=== PATIENT | male | born 1960 | race Caucasian/White ===

== ENCOUNTER → 2017-05-10 | Outpatient (CLI) | payer OTHER ==
[2017-05-10 12:29] LABS: MEAN CORPUSCULAR HEMOGLOBIN 31.9 pg (27.0-33.0); MEAN CORPUSCULAR HGB CONC 34.3 g/dl (32.0-36.5); MEAN CORPUSCULAR VOLUME 92.9 fl (80.0-96.0); RED CELL DISTRIBUTION WIDTH 12.6 % (11.5-14.5); WHITE BLOOD COUNT 6.7 K/mm3 (4.0-10.0)
[2017-05-10 14:00] LABS: BASOPHILS 1 % (0-4); EOSINOPHILS 1 % (0-5)
[2017-05-10 15:53] LABS: ALBUMIN 4.1 GM/DL (3.2-5.2); ALBUMIN/GLOBULIN RATIO 1.17 (1.00-1.93); ALKALINE PHOSPHATASE 55 U/L (45-117); ALT/SGPT 36 U/L (12-78); ANION GAP 11 MEQ/L (8-16); AST/SGOT 19 U/L (15-37); BLOOD UREA NITROGEN 17 MG/DL (7-18); CALCIUM LEVEL 9.1 MG/DL (8.5-10.1); CARBON DIOXIDE LEVEL 25 MEQ/L (21-32); CHLORIDE LEVEL 104 MEQ/L (98-107); CREATININE FOR GFR 1.02 MG/DL (0.70-1.30); FREE T4 1.02 NG/DL (0.76-1.46); GLOMERULAR FILTRATION RATE > 60.0 (>56); GLUCOSE, FASTING 90 MG/DL (70-105); POTASSIUM SERUM 4.7 MEQ/L (3.5-5.1); SODIUM LEVEL 140 MEQ/L (136-145); TOTAL PROTEIN 7.6 GM/DL (6.4-8.2)
== END ==
LOC: M WUC 10:19
PROVIDERS: ATTEND Physician Assistant
DX: J02.9 Acute pharyngitis, unspecified (principal)

== ENCOUNTER → 2018-09-14 | Outpatient (REF) | payer OTHER ==
[2018-09-15 13:39] LABS: TESTOSTERONE 714 NG/DL (241-827)
== END ==
LOC: M LAB REF 11:49
DX: R68.82 Decreased libido (principal)

== ENCOUNTER 2019-08-12 23:32 | Emergency (ER) | payer OTHER ==
[~2019-08-12] VITALS: Ht 172.7 cm; Wt 104.5 kg
[2019-08-13] MEDS ORDERED: NS 500 ML IV ONE ×2 (00:30→01:15)
[2019-08-13 00:32] LABS: BASO # 0.1 10^3/uL (0.0-0.2); BASO % 0.5 % (0.0-1.0); EOS # 0.2 10^3/uL (0.0-0.5); HEMATOCRIT 42.6 % (42.0-52.0); HEMOGLOBIN 14.6 g/dl (13.5-17.5); LYMPH # 1.7 10^3/uL (1.5-5.0); MEAN CORPUSCULAR HEMOGLOBIN 32.1 pg (27.0-33.0); MEAN CORPUSCULAR HGB CONC 34.3 g/dl (32.0-36.5); MEAN CORPUSCULAR VOLUME 93.6 fl (80.0-96.0); MONO # 0.7 10^3/uL (0.0-0.8); MONO % 6.4 % (0.0-5.0); NEUTROPHILS % 74.6 % (36.0-66.0); PLATELET COUNT, AUTOMATED 240 10^3/uL (150-450); RED BLOOD COUNT 4.55 10^6/uL (4.30-6.10); WHITE BLOOD COUNT 10.7 10^3/uL (4.0-10.0)
[2019-08-13 00:43] LABS: ALBUMIN 3.7 GM/DL (3.2-5.2); ALT/SGPT 22 U/L (12-78); BILIRUBIN,DIRECT 0.2 MG/DL (0.0-0.2); BILIRUBIN,TOTAL 0.6 MG/DL (0.2-1.0); BLOOD UREA NITROGEN 14 MG/DL (7-18); CALCIUM LEVEL 8.7 MG/DL (8.5-10.1); CARBON DIOXIDE LEVEL 30 MEQ/L (21-32); CHLORIDE LEVEL 107 MEQ/L (98-107); CREATININE FOR GFR 1.05 MG/DL (0.70-1.30); GLOMERULAR FILTRATION RATE > 60.0 (>56); GLUCOSE, FASTING 98 MG/DL (70-100); LIPASE 121 U/L (73-393); POTASSIUM SERUM 4.1 MEQ/L (3.5-5.1); SODIUM LEVEL 141 MEQ/L (136-145); TOTAL PROTEIN 6.9 GM/DL (6.4-8.2)
[2019-08-13 00:44] LABS: INR 0.96; PARTIAL THROMBOPLASTIN TIME 26.6 SECONDS (25.0-38.4); PROTHROMBIN TIME 12.5 SECONDS (11.8-14.0)
[2019-08-13 00:47] LABS: APPEARANCE, URINE CLOUDY (CLEAR); BACTERIA, URINE AUTO NEGATIVE (NEGATIVE); BILIRUBIN, URINE AUTO NEGATIVE (NEGATIVE); BLOOD, URINE BLOOD NEGATIVE (NEGATIVE); COLOR, URINE YELLOW (YELLOW); GLUCOSE, URINE (UA) AUTO NEGATIVE (NEGATIVE); KETONE, URINE AUTO NEGATIVE (NEGATIVE); LEUKOCYTE ESTERASE, URINE AUTO NEGATIVE (NEGATIVE); MUCUS, URINE SMALL (NEGATIVE); NITRITE, URINE AUTO NEGATIVE (NEGATIVE); PROTEIN, URINE AUTO NEGATIVE (NEGATIVE); RBC, URINE AUTO 0 /HPF (0-3); SPECIFIC GRAVITY URINE AUTO 1.014 (1.002-1.035); SQUAMOUS EPITHELIAL CELL UR AU 0 /HPF (0-6); UROBILINOGEN, URINE AUTO 0.2 mg/dL (0.0-2.0); WBC, URINE AUTO 1 /HPF (0-3)
[2019-08-13] MEDS ORDERED: MORPHINE 10 MG/ML 1ML VIAL (J2270) As Ordered ONE (01:08)
[2019-08-13] MEDS ORDERED: MORPHINE 10 MG/ML 1ML VIAL (J2270) IV ONE (01:15)
[2019-08-13] MEDS ORDERED: ISOVUE-370 76% 100ML VIAL (Q9967) As Ordered ONE (01:17)
[2019-08-13] MEDS ORDERED: metroNIDAZOLE 750 MG in IV 1 EA IV ONE (02:30)
[2019-08-13] MEDS ORDERED: SUCRALFATE SUSP 1GM/10ML UD PO ONE (02:30)
[2019-08-13] MEDS ORDERED: CIPROFLOXACIN 400 MG in IV 1 EA IV ONE (02:30)
[2019-08-13] MEDS ORDERED: GI COCKTAIL 50ML BTL(HYOSCYAMINE/MAALOX/LIDOCAINE VISCOUS)(1:3:1) PO ONE (02:30)
[2019-08-13] MEDS ORDERED: FLAG500T PO (03:53)
[2019-08-13] MEDS ORDERED: CIPR-249 PO (03:53)
[2019-08-13] MEDS ORDERED: NORCO 5/325MG TABLET (BULK FOR ED) PO ONE (04:00)
[2019-08-13 05:04] VITALS: BP 145/78
--- NOTE | 2019-08-13 08:05 | REPVR ---
PROCEDURE INFORMATION: Exam: CT Abdomen and pelvis with contrast Exam date and time: 08/13/2019 1:25 AM Clinical history: 58 years old, male; Abdominal pain; Additional info: Llq pain TECHNIQUE: Imaging protocol: Computed tomography of the abdomen and pelvis with intravenous contrast. Radiation optimization: All CT scans at this facility use at least one of these dose optimization techniques: automated exposure control; mA and/or kV adjustment per patient size (includes targeted exams where dose is matched to clinical indication); or iterative reconstruction. Contrast material: ISO 370; Contrast volume: 100 ml; Contrast route: IV; COMPARISON: CT ABD PELVIS WITH CONTRAST 04/16/2015 6:30 PM FINDINGS: Liver: Partially exophytic right posterior-superior hepatic lesion measuring 3.2 cm is again demonstrated with some peripheral nodular enhancement, likely an exophytic hemangioma. Small, less than 5 mm, liver hypodensity. Highly likely to be benign and does not require follow-up imaging or biopsy per ACR. Additional small liver lesions. Gallbladder and bile ducts: Cholelithiasis. Pancreas: Small focal intercalated fat within the pancreas. Spleen: Normal. No splenomegaly. Adrenals: Normal. No mass. Kidneys and ureters: Normal. No hydronephrosis. Stomach and bowel: Mild/moderate acute sigmoid diverticulitis. Moderate diverticulosis coli. Appendix: No evidence of appendicitis. Intraperitoneal space: No perforation or drainable fluid collection. Vasculature: Minimal aortic atherosclerosis. Lymph nodes: Unremarkable. No enlarged lymph nodes. Bladder: Unremarkable as visualized. Reproductive: Unremarkable as visualized. Bones/joints: Moderate lower lumbar spinal stenosis. Soft tissues: Right inguinal fat protruding hernia. Small fat protruding umbilical hernia. IMPRESSION: 1. Mild/moderate acute sigmoid diverticulitis. No perforation or drainable fluid collection. 2. Cholelithiasis. 3. Small fat protruding umbilical hernia. 4. Partially exophytic right posterior-superior hepatic lesion measuring 3.2 cm is again demonstrated with some peripheral nodular enhancement, likely an exophytic hemangioma. Appears present on the comparison and unchanged in size. COMMENT: Consistent with the [employer]'s Incidental Findings Committee Report (J Am Yadiel Radiol 2010): Unless the patient's specific circumstances suggest otherwise, any liver lesion 0.5 cm or less, any cystic kidney lesion less than 1.0 cm, and/or any adrenal lesion 1.0 cm or less not otherwise characterized in this report as possessing suspicious or indeterminate imaging features is/are highly likely to be benign and do not require follow-up imaging or biopsy. Electronically signed by: Froilan Bowen On 08/13/2019 02:20:22 AM
== END 2019-08-13 05:06 | disposition home or self-care (01) ==
LOC: M ED 23:32
DX: K57.32 Diverticulitis of large intestine without perforation or abscess without bleeding (principal); K42.9 Umbilical hernia without obstruction or gangrene; K80.20 Calculus of gallbladder without cholecystitis without obstruction; I10 Essential (primary) hypertension
CPT/HCPCS: 74177; 80048; 80076; 81001; 83690; 85025; 85610; 85730; 87086; 96365; 96367; 96375; 99284; J0744; J2270; Q9967

== ENCOUNTER 2020-01-28 12:32 | Emergency (ER) | payer OTHER ==
[~2020-01-28] VITALS: Ht 175.3 cm; Wt 113.5 kg
[~2020-01-28 12:32] MED LIST: CIPR-249 PO; FLAG500T PO
[2020-01-28] MEDS ORDERED: ATOR1TAB21 (12:38)
[2020-01-28] MEDS ORDERED: BUPR150T3 (12:38)
[2020-01-28] MEDS ORDERED: LOSA50TA5 (12:38)
[2020-01-28] MEDS ORDERED: ASPIRIN 81 MG CHEW TABLET PO ONE (13:00)
[2020-01-28] MEDS ORDERED: GI COCKTAIL 50ML BTL(HYOSCYAMINE/MAALOX/LIDOCAINE VISCOUS)(1:3:1) PO ONE (13:00)
--- NOTE | 2020-01-28 13:10 | REP ---
Portable chest x-ray: Single view. History: Chest pain. Comparison chest x-ray is from July 10, 2014. Findings: Today's views exposed at a somewhat lesser level of inspiration. Heart size is borderline. The aorta is tortuous. Pulmonary vasculature is slightly cephalized. The pleural angles are sharp. No evidence of infiltrate, pulmonary edema, or pleural effusion. Impression: Cephalization. Borderline heart size. Lesser level of inspiration. Electronically Signed by Nestor Barry MD 01/28/2020 01:02 P
[2020-01-28 13:22] LABS: BASO % 0.4 % (0.0-1.0); EOS # 0.2 10^3/uL (0.0-0.5); EOS % 2.4 % (0.0-3.0); LYMPH # 1.3 10^3/uL (1.5-5.0); LYMPH % 14.3 % (24.0-44.0); MEAN CORPUSCULAR HEMOGLOBIN 31.3 pg (27.0-33.0); MEAN CORPUSCULAR HGB CONC 34.9 g/dl (32.0-36.5); MEAN CORPUSCULAR VOLUME 89.8 fl (80.0-96.0); MONO # 0.6 10^3/uL (0.0-0.8); MONO % 6.4 % (0.0-5.0); NEUTROPHILS # 6.9 10^3/uL (1.5-8.5); NEUTROPHILS % 76.3 % (36.0-66.0); PLATELET COUNT, AUTOMATED 205 10^3/uL (150-450); RED BLOOD COUNT 4.79 10^6/uL (4.30-6.10)
[2020-01-28 13:54] LABS: BLOOD UREA NITROGEN 17 MG/DL (7-18); CALCIUM LEVEL 8.6 MG/DL (8.5-10.1); CARBON DIOXIDE LEVEL 26 MEQ/L (21-32); CHLORIDE LEVEL 108 MEQ/L (98-107); CK-MB VALUE MASS 1.4 NG/ML (<3.6); CPK CREATINE PHOSPHOKINASE 196 U/L (39-308); CREATININE FOR GFR 1.01 MG/DL (0.70-1.30); GLOMERULAR FILTRATION RATE > 60.0 (>56); GLUCOSE, FASTING 122 MG/DL (70-100); MB/CK RELATIVE INDEX 0.71 (< OR =4); POTASSIUM SERUM 3.7 MEQ/L (3.5-5.1); SODIUM LEVEL 140 MEQ/L (136-145); TROPONIN I < 0.02 NG/ML (< 0.10)
[2020-01-28 14:46] LABS: INR 1.02; PROTHROMBIN TIME 13.1 SECONDS (11.8-14.0)
[2020-01-28] MEDS: NITROGLYCERIN 0.4 MG SUBL TABLET SL PRN ×2 (16:10→16:14)
[2020-01-28 16:14] VITALS: BP 123/55
[2020-01-28] MEDS ORDERED: NS 1,000 ML IV SCH (16:30)
[2020-01-28] MEDS ORDERED: KETOROLAC 30 MG/ML VIAL (J1885) IV ONE (16:30)
--- NOTE | 2020-01-28 17:27 | ECGEPIP ---
[facility] - ED Test Date: 2020-01-28 Pat Name: HUMBLE GRAY JR Department: Room: - Gender: Male Hospital Ward Clerk: ct : 1960 Requested By: Shira Nails Order Number: [id number] Reading MD: Shira Nails Measurements Intervals [place] Rate: 75 P: 50 [place]: 176 QRS: -12 QRSD: 83 T: 6 QT: 372 QTc: 416 Interpretive Statements SINUS RHYTHM MINIMAL VOLTAGE CRITERIA FOR LVH, CONSIDER NORMAL VARIANT NO PRIOR Electronically Signed on 01-28-2020 17:26:43 EDT by Shira Nails
--- NOTE | 2020-01-28 17:29 | ECGEPIP ---
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
[2020-01-28 18:33] LABS: CK-MB VALUE MASS 1.2 NG/ML (<3.6); CPK CREATINE PHOSPHOKINASE 154 U/L (39-308); MB/CK RELATIVE INDEX 0.78 (< OR =4); TROPONIN I < 0.02 NG/ML (< 0.10)
[2020-01-28] MEDS ORDERED: ASPI81TA85 PO (19:12)
[2020-01-28 19:17] VITALS: BP 119/66
== END 2020-01-28 19:27 | disposition home or self-care (01) ==
LOC: M ED 12:32
DX: R07.89 Other chest pain (principal); I10 Essential (primary) hypertension; E78.5 Hyperlipidemia, unspecified; Z79.899 Other long term (current) drug therapy; Z79.82 Long term (current) use of aspirin
CPT/HCPCS: 71045; 80048; 82550; 82553; 84484; 85025; 85610; 93005; 93041; 94760; 96361; 96374; 99285; J1885

== ENCOUNTER → 2020-09-19 | Outpatient (REF) | payer OTHER ==
[~2020-09-19] MED LIST changes: +ASPI81TA86 PO; +ATOR1TAB21; +BUPR150T3; +LOSA50TA5
== END ==
LOC: M LAB REF 12:16
PROVIDERS: ATTEND Internal Medicine
DX: R68.82 Decreased libido (principal); N52.9 Male erectile dysfunction, unspecified

== ENCOUNTER → 2020-09-23 | Outpatient (CLI) | payer OTHER ==
[~2020-09-23] MED LIST changes: +ASPI81TA26 PO; +ATOR1TAB21 PO; +BUPR150T3 PO; +LOSA50TA5 PO
--- NOTE | 2020-09-24 01:46 | REP ---
INDICATION: LEFT BACK AND BUTTOCK PAIN COMPARISON: None. TECHNIQUE: AP, lateral, bilateral oblique, and coned-down views of the lumbar spine. FINDINGS: Vertebral bodies are intact. No acute fracture/compression injury or subluxation. Lateral view suggests very minimal, 2 mm anterolisthesis at the L4-5 level with subtle associated disc space narrowing. Moderate focal degenerative changes at L5-S1 includes endplate sclerosis with moderate disc space narrowing and marginal osteophyte formation. Mild/moderate degenerative changes are also identified at L1-2 with endplate sclerosis minimal disc space narrowing and very subtle marginal spurring. IMPRESSION: Degenerative changes as suggested above. <Electronically signed by Jayme Dennis > 09/24/20 0142
--- NOTE | 2020-09-24 01:47 | REP ---
INDICATION: LEFT BACK AND BUTTOCK PAIN COMPARISON: None. TECHNIQUE: AP and frog-lateral views of the left hip FINDINGS: Generalized age-related changes include subtle increased sclerosis to the acetabulum with minimal joint space narrowing and marginal spurring. No further overt osteoarthritic or significant degenerative changes are appreciated. No evidence for acute or healed injury. Surrounding soft tissues are normal. IMPRESSION: Mild generalized age-related changes. <Electronically signed by Jayme Dennis > 09/24/20 0143
== END ==
LOC: M WUC 15:34
PROVIDERS: ATTEND Internal Medicine
DX: M54.5 Low back pain (principal); M51.36 Other intervertebral disc degeneration, lumbar region; M16.12 Unilateral primary osteoarthritis, left hip

== ENCOUNTER → 2020-09-26 | Outpatient (CLI) | payer OTHER ==
[~2020-09-26] MED LIST changes: +BUSP5TA PO; +LISI-542 PO
== END ==
LOC: M LABSMTC 10:36
PROVIDERS: ATTEND Anesthesiology
DX: Z01.812 Encounter for preprocedural laboratory examination (principal); Z20.828 Contact with and (suspected) exposure to other viral communicable diseases

== ENCOUNTER 2020-10-01 07:56 | Day surgery (SDC) | payer OTHER ==
[~2020-10-01] VITALS: Ht 172.7 cm; Wt 111.1 kg
[~2020-10-01 07:56] MED LIST changes: -BUSP5TA PO; +LIDOCAINE 2% 100MG/5ML SDV (FOR ANES.) As Ordered ONE; -LISI-542 PO; +NS 1,000 ML IV ONE; +propofoL 200 MG/20 ML VIAL As Ordered ONE
[2020-10-01] MEDS ORDERED: LISI-542 PO (08:34)
[2020-10-01] MEDS ORDERED: BUSP5TA PO (08:34)
--- NOTE | 2020-10-01 10:26 | ROOR ---
Patient Name: Sergo Ballesteros Procedure Date: 10/01/2020 10:05 AM Date of : 1960 Age: 60 Room: [facility] Gender: Male Note Status: Finalized Procedure: Total Colonoscopy to Cecum Indications: Colon cancer screening in patient at increased risk: Colorectal cancer in brother Providers: Jerry Winston MD Referring MD: TAMMY HAMMOND JR, MD Requesting Provider: Medicines: Monitored Anesthesia Care Complications: No immediate complications. Procedure: Pre-Anesthesia Assessment: - The heart rate, respiratory rate, oxygen saturations, blood pressure, adequacy of pulmonary ventilation, and response to care were monitored throughout the procedure. The Colonoscope was introduced through the anus and advanced to the cecum, identified by appendiceal orifice and ileocecal valve. The colonoscopy was performed without difficulty. The patient tolerated the procedure well. The quality of the bowel preparation was excellent. Findings: The perianal and digital rectal examinations were normal. Non-bleeding internal hemorrhoids were found during retroflexion. The hemorrhoids were small and Grade I (internal hemorrhoids that do not prolapse). Multiple small and large-mouthed diverticula were found in the recto-sigmoid colon, sigmoid colon and descending colon. The exam was otherwise without abnormality on direct and retroflexion views. Impression: - Non-bleeding internal hemorrhoids. - Diverticulosis in the recto-sigmoid colon, in the sigmoid colon and in the descending colon. - The examination was otherwise normal on direct and retroflexion views. - No specimens collected. - The exam was otherwise normal to the cecum. Recommendation: - Patient has a contact number available for emergencies. The signs and symptoms of potential delayed complications were discussed with the patient. Return to normal activities tomorrow. Written discharge instructions were provided to the patient. - High fiber diet. - Discharge patient to home. - Continue present medications. - Repeat colonoscopy in 5 years for screening purposes. - Return to referring physician. - The findings and recommendations were discussed with the patient. Procedure Code(s): --- Professional --- G0105, Colorectal cancer screening; colonoscopy on individual at high risk Diagnosis Code(s): --- Professional --- Z80.0, Family history of malignant neoplasm of digestive organs K64.0, First degree hemorrhoids K57.30, Diverticulosis of large intestine without perforation or abscess without bleeding CPT copyright 2019 [employer]. All rights reserved. The codes documented in this report are preliminary and upon butter production supervisor review may be revised to meet current compliance requirements. Jerry Winston MD Jerry Winston MD 10/01/2020 10:25:47 AM Electronically signed by Jerry Winston MD Number of Addenda: 0 Note Initiated On: 10/01/2020 10:05 AM Estimated Blood Loss: Estimated blood loss: none.
[2020-10-01 10:52] VITALS: BP 132/86
== END 2020-10-01 11:05 | disposition home or self-care (01) ==
LOC: M OPP 07:56
PROVIDERS: ATTEND Internal Medicine Gastroenterology
DX: Z12.11 Encounter for screening for malignant neoplasm of colon (principal); Z80.0 Family history of malignant neoplasm of digestive organs; K57.30 Diverticulosis of large intestine without perforation or abscess without bleeding; K64.0 First degree hemorrhoids; I10 Essential (primary) hypertension; Z79.82 Long term (current) use of aspirin; Z79.899 Other long term (current) drug therapy; Z91.012 Allergy to eggs; Z91.018 Allergy to other foods

== ENCOUNTER → 2021-09-23 | Outpatient (REF) | payer OTHER ==
[~2021-09-23] MED LIST changes: +BUPR150T12; +BUPR150T12 PO; -BUPR150T3; -BUPR150T3 PO; +BUSP5TA PO; -LIDOCAINE 2% 100MG/5ML SDV (FOR ANES.) As Ordered ONE; +LISI-898 PO; -NS 1,000 ML IV ONE; -propofoL 200 MG/20 ML VIAL As Ordered ONE
[2021-09-23 13:04] LABS: FOLATE 5.5 NG/ML
== END ==
LOC: M LAB REF 12:08
PROVIDERS: ATTEND Internal Medicine
DX: N52.9 Male erectile dysfunction, unspecified (principal); R41.3 Other amnesia

== ENCOUNTER → 2022-04-20 | Outpatient (CLI) | payer OTHER ==
[~2022-04-20] MED LIST changes: -LISI-898 PO; +LISI5TAB11 PO
== END ==
LOC: M WUC 14:43
PROVIDERS: ATTEND Physician Assistant Medical
DX: M54.50 Low back pain, unspecified (principal)

== ENCOUNTER → 2022-09-10 | Outpatient (REF) | payer OTHER | LOC: M LAB REF 16:02 | PROVIDERS: ATTEND Internal Medicine | DX: R59.0 Localized enlarged lymph nodes (principal) ==

== ENCOUNTER → 2022-09-23 | Outpatient (CLI) | payer OTHER | LOC: M RAD 11:05 | PROVIDERS: ATTEND Internal Medicine | DX: R10.33 Periumbilical pain (principal); R59.0 Localized enlarged lymph nodes ==

== ENCOUNTER → 2022-11-17 | Outpatient (CLI) | payer OTHER ==
[~2022-11-17] MED LIST changes: +ISOVUE-370 76% 100ML VIAL As Ordered ONE
== END ==
LOC: M RAD 15:58
PROVIDERS: ATTEND Surgery
DX: R59.9 Enlarged lymph nodes, unspecified (principal); R93.89 Abnormal findings on diagnostic imaging of other specified body structures

== ENCOUNTER → 2022-11-18 | Outpatient (REF) | payer OTHER ==
[~2022-11-18] MED LIST changes: -ISOVUE-370 76% 100ML VIAL As Ordered ONE
== END ==
LOC: M LAB REF 17:29
PROVIDERS: ATTEND Otolaryngology
DX: R22.1 Localized swelling, mass and lump, neck (principal)

== ENCOUNTER → 2023-01-24 | Outpatient (CLI) | payer OTHER ==
[~2023-01-24] MED LIST changes: +BUPR300T92 PO; +VITMTA PO
== END ==
LOC: M LABSMTC 08:13
PROVIDERS: ATTEND Anesthesiology
DX: Z01.812 Encounter for preprocedural laboratory examination (principal); Z20.822 Contact with and (suspected) exposure to COVID-19

== ENCOUNTER → 2023-01-27 | Day surgery (SDC) | payer OTHER ==
[~2023-01-27] VITALS: Ht 172.7 cm; Wt 110.1 kg
[~2023-01-27] MED LIST changes: +MIDAZOLAM INJ 2MG/2ML VIAL As Ordered ONE; +ONDANSETRON 4MG 2ML VIAL As Ordered ONE; +fentaNYL 100 MCG/2 ML INJECTION As Ordered ONE; +propofoL 200 MG/20 ML VIAL As Ordered ONE
[2023-01-27 08:24] VITALS: BP 140/93
== END | disposition home or self-care (01) ==
LOC: M SDC 07:40
PROVIDERS: ATTEND Otolaryngology
DX: R22.1 Localized swelling, mass and lump, neck (principal); Z53.09 Procedure and treatment not carried out because of other contraindication

== ENCOUNTER → 2023-01-27 | Outpatient (CLI) | payer OTHER ==
[~2023-01-27] MED LIST changes: -MIDAZOLAM INJ 2MG/2ML VIAL As Ordered ONE; -ONDANSETRON 4MG 2ML VIAL As Ordered ONE; -fentaNYL 100 MCG/2 ML INJECTION As Ordered ONE; -propofoL 200 MG/20 ML VIAL As Ordered ONE
[2023-01-27 18:57] LABS: RSV AMPLIFICATION NEGATIVE (NEGATIVE)
== END ==
LOC: M WUC 15:02
PROVIDERS: ATTEND Internal Medicine
DX: R05.9 Cough, unspecified (principal); R06.2 Wheezing; R06.02 Shortness of breath

== ENCOUNTER → 2023-02-21 | Outpatient (CLI) | payer OTHER ==
[~2023-02-21] MED LIST changes: +METHACHOLINE KIT INH ONE
== END ==
LOC: M CARPUL 09:39
PROVIDERS: ATTEND Internal Medicine
DX: R06.02 Shortness of breath (principal)
CPT/HCPCS: 94070; J7674

== ENCOUNTER → 2023-03-22 | Outpatient (CLI) | payer OTHER ==
[~2023-03-22] MED LIST changes: +ISOVUE-370 76% 100ML VIAL As Ordered ONE; -METHACHOLINE KIT INH ONE
== END ==
LOC: M RAD 15:57
PROVIDERS: ATTEND Otolaryngology
DX: R22.1 Localized swelling, mass and lump, neck (principal)
CPT/HCPCS: 70491; Q9967

== ENCOUNTER 2023-07-04 06:49 | Day surgery (SDC) | payer OTHER ==
[~2023-07-04] VITALS: Ht 172.7 cm; Wt 107.5 kg
[~2023-07-04 06:49] MED LIST changes: -ISOVUE-370 76% 100ML VIAL As Ordered ONE; +PROA1AER2; +PROA1AER2 INH
[2023-07-04] MEDS ORDERED: LR 1,000 ML IV SCH ×2 (07:35→10:35)
[2023-07-04] MEDS ORDERED: IBUP200C25 PO (07:39)
[2023-07-04] MEDS ORDERED: ONDANSETRON 4MG 2ML VIAL As Ordered ONE (07:45)
[2023-07-04] MEDS ORDERED: LIDOCAINE 2% 100MG/5ML SDV (FOR ANES.) As Ordered ONE (07:45)
[2023-07-04] MEDS ORDERED: ROCURONIUM BROMIDE 50MG/5ML VIAL As Ordered ONE (07:45)
[2023-07-04] MEDS ORDERED: propofoL 200 MG/20 ML VIAL As Ordered ONE (07:45)
[2023-07-04] MEDS ORDERED: MIDAZOLAM INJ 2MG/2ML VIAL As Ordered ONE (07:48)
[2023-07-04] MEDS ORDERED: fentaNYL 100 MCG/2 ML INJECTION As Ordered ONE (07:48)
[2023-07-04] MEDS ORDERED: ACETAMINOPHEN 1000MG 100ML IV BAG As Ordered ONE (07:49)
[2023-07-04] MEDS ORDERED: dexmedeTOMIDine (4MCG/ML)200MCG/50ML BTL (PRECEDEX) As Ordered ONE (07:49)
[2023-07-04 07:53] LABS: BLOOD UREA NITROGEN 14 MG/DL (9-23); CALCIUM LEVEL 8.6 MG/DL (8.3-10.6); CARBON DIOXIDE LEVEL 24 MMOL/L (20-31); CHLORIDE LEVEL 109 MMOL/L (98-107); CREATININE FOR GFR 0.83 MG/DL (0.70-1.30); GLOMERULAR FILTRATION RATE > 60.0 (>49); GLUCOSE, FASTING 113 MG/DL (74-106); SODIUM LEVEL 141 MMOL/L (136-145)
[2023-07-04] MEDS ORDERED: LIDOCAINE W/EPINEPHRINE 1% 20ML VIAL As Ordered ONE (08:17)
[2023-07-04] MEDS ORDERED: SUCCINYLCHOLINE 100MG/5ML SYRINGE As Ordered ONE (08:59)
[2023-07-04] MEDS ORDERED: GLYCOPYRROLATE INJ 0.2 MG/ML 2 ML VIAL As Ordered ONE (09:00)
[2023-07-04] MEDS ORDERED: ePHEDrine SULFATE 25 MG/5 ML(5MG/ML) SYRINGE As Ordered ONE (10:26)
[2023-07-04] MEDS ORDERED: BACITRACIN OINTMENT 30GM TUBE As Ordered ONE (10:26)
[2023-07-04 11:56] VITALS: BP 116/69; TEMP 97.6; O2SAT 95
== END 2023-07-04 11:52 | disposition home or self-care (01) ==
LOC: M SDC 06:49
PROVIDERS: ATTEND Otolaryngology
DX: R22.1 Localized swelling, mass and lump, neck (principal); E66.9 Obesity, unspecified; J45.909 Unspecified asthma, uncomplicated; Z68.35 Body mass index [BMI] 35.0-35.9, adult; Z79.51 Long term (current) use of inhaled steroids; Z79.82 Long term (current) use of aspirin; Z79.899 Other long term (current) drug therapy; Z91.012 Allergy to eggs; Z91.018 Allergy to other foods
CPT/HCPCS: 21555; 36415; 80048; 87070; 87075; 87077; 87186; 88305; J0131; J0330; J1100; J2250; J2405; J3010

== ENCOUNTER → 2023-09-02 | Outpatient (CLI) | payer OTHER ==
[~2023-09-02] MED LIST changes: +IBUP200C25 PO
== END ==
LOC: M SLEEP 20:00
PROVIDERS: ATTEND Physician Assistant
DX: R06.83 Snoring (principal)

== ENCOUNTER → 2024-04-11 | Outpatient (CLI) | payer OTHER ==
[~2024-04-11] MED LIST changes: +BUPR-597 PO; -BUPR300T92 PO
== END ==
LOC: M WUC 13:34
PROVIDERS: ATTEND Internal Medicine
DX: M47.817 Spondylosis without myelopathy or radiculopathy, lumbosacral region (principal); M54.30 Sciatica, unspecified side; R05.9 Cough, unspecified

== ENCOUNTER 2024-08-28 07:12 | Day surgery (SDC) | payer OTHER ==
[~2024-08-28] VITALS: Ht 172.7 cm; Wt 108.4 kg
[~2024-08-28 07:12] MED LIST changes: +APAP325T4 PO; +THERTAB52 PO
[2024-08-28] MEDS ORDERED: LR 1,000 ML IV SCH (08:00)
[2024-08-28] MEDS ORDERED: ONDANSETRON 4MG 2ML VIAL As Ordered ONE (08:03)
[2024-08-28] MEDS ORDERED: SUGAMMADEX SODIUM 500 MG/5 ML VIAL (BRIDION) As Ordered ONE (08:03)
[2024-08-28] MEDS ORDERED: KETOROLAC 60MG 2ML VIAL As Ordered ONE (08:03)
[2024-08-28] MEDS ORDERED: LIDOCAINE 2% 100MG/5ML SDV (FOR ANES.) As Ordered ONE (08:03)
[2024-08-28] MEDS ORDERED: ROCURONIUM BROMIDE 50MG/5ML VIAL As Ordered ONE (08:03)
[2024-08-28] MEDS ORDERED: propofoL 200 MG/20 ML VIAL As Ordered ONE (08:03)
[2024-08-28] MEDS ORDERED: fentaNYL 100 MCG/2 ML INJECTION As Ordered ONE (08:04)
[2024-08-28] MEDS ORDERED: MIDAZOLAM INJ 2MG/2ML VIAL As Ordered ONE (08:04)
[2024-08-28] MEDS: ceFAZolin 2 GM/D5W 50 ML IV BAG As Ordered ONE (09:27)
[2024-08-28] MEDS ORDERED: ACETAMINOPHEN 1000MG 100ML IV BAG As Ordered ONE (09:30)
[2024-08-28] MEDS ORDERED: MORPHINE 2 MG/ML 1ML VIAL IV PRN (10:10)
[2024-08-28] MEDS ORDERED: ONDANSETRON 4MG 2ML VIAL IV PRN (10:10)
[2024-08-28] MEDS ORDERED: fentaNYL 100 MCG/2 ML INJECTION IV PRN (10:10)
[2024-08-28] MEDS ORDERED: oxyCODONE 5MG TAB PO PRN (10:10)
[2024-08-28 11:30] VITALS: BP 150/93; TEMP 97.1; O2SAT 98
== END 2024-08-28 11:39 | disposition home or self-care (01) ==
LOC: M SDC 07:12
PROVIDERS: ATTEND Surgery
DX: K42.9 Umbilical hernia without obstruction or gangrene (principal); Z91.012 Allergy to eggs; Z91.018 Allergy to other foods; Z79.899 Other long term (current) drug therapy
CPT/HCPCS: 49593; 88302; 93005; C1781; C9290; J0131; J0665; J0690; J1100; J1885; J2250; J2405; J3010

== ENCOUNTER 2025-06-12 09:45 | Day surgery (SDC) | payer OTHER ==
[~2025-06-12] VITALS: Ht 172.7 cm; Wt 107.9 kg
[~2025-06-12 09:45] MED LIST changes: +AMLO1TAB24 PO; +ATOR40TA75 PO; -BUPR-597 PO; +BUPR-766 PO; +LIDOCAINE 2% 100 MG/5 ML SDV (FOR ANES.) As Ordered ONE; +METF750T36 PO
[2025-06-12 11:14] VITALS: TEMP 97.3
[2025-06-12 11:35] VITALS: BP 169/89; O2SAT 97
== END 2025-06-12 11:51 | disposition home or self-care (01) ==
LOC: M OPP 09:45
PROVIDERS: ATTEND Internal Medicine Gastroenterology
DX: Z12.11 Encounter for screening for malignant neoplasm of colon (principal); K64.0 First degree hemorrhoids; K57.30 Diverticulosis of large intestine without perforation or abscess without bleeding; Z80.0 Family history of malignant neoplasm of digestive organs; K22.70 Barrett's esophagus without dysplasia; K22.89 Other specified disease of esophagus; K44.9 Diaphragmatic hernia without obstruction or gangrene; R12 Heartburn; Z91.012 Allergy to eggs; Z91.018 Allergy to other foods; Z79.84 Long term (current) use of oral hypoglycemic drugs; Z79.899 Other long term (current) drug therapy; J45.909 Unspecified asthma, uncomplicated
CPT/HCPCS: 43239; 45378; 88305; J3010